=== PATIENT | male | born 1995 | race African-American/Black ===

== ENCOUNTER 2018-08-03 00:58 | Emergency (ER) | payer OTHER ==
[2018-08-03] MEDS: LIDOCAINE W/EPINEPHRINE 1% 20ML VIAL SC (01:30)
[2018-08-03] MEDS: NS 1,000 ML IV (02:30)
== END 2018-08-03 04:09 | disposition home or self-care (01) ==
LOC: M ED 00:58
DX: S01.81XA Laceration without foreign body of other part of head, initial encounter (principal); S02.82XA Fracture of other specified skull and facial bones, left side, initial encounter for closed fracture; Y04.8XXA Assault by other bodily force, initial encounter; Y92.099 Unspecified place in other non-institutional residence as the place of occurrence of the external cause; Y93.9 Activity, unspecified; Y99.9 Unspecified external cause status; F10.10 Alcohol abuse, uncomplicated
CPT/HCPCS: J0690